=== PATIENT | male | born 1970 | race Caucasian/White ===

== ENCOUNTER 2020-04-29 10:40 | Day surgery (SDC) | payer OTHER ==
[2020-04-24 15:33] LABS: Absolute Lymphocytes (CBC) 2.6 K/uL (0.7-4.9); Basophils % 0.5 % (0-1.3); Lymphocytes % 26.3 % (15.3-44.8); MPV 8.5 fL (7.6-11.3); RBC Red Blood Cell Count 5.31 M/uL (4.33-5.43)
[2020-04-24 16:00] LABS: Potassium 3.6 mmol/L (3.5-5.1)
[2020-04-29] MEDS ORDERED: CEFAZOLIN/SWI 1gm 0 GM/0 ML SYR ONE (11:11)
[2020-04-29] MEDS ORDERED: Ringers Lactate 1,000 ML IV ONE ×4 (11:11→15:49)
--- OUTSIDE RECORDS SUMMARY | 2020-04-29 11:18 | XMS REPORT | Continuity of Care Document ---
:1970 [address] Organization [facility] [place] Information [employer] Care Team Providers Name Role Phone [facility] [place] [employer] Unavailable Un available Problems Problem Status Onset Classification Date Comments Sourc e Date Reported PNA Active [place] [id number] [place] COMMUNITY Active [facility] ACQUIRED 7 [place] PNEUMONIA PNEUMONIA, Active [facility] UNSPECIFIED [place] [employer] Medications Medication Details Route Status Patient Ordering Order Source Instructions Provider Date Afrin Severe Notes: (Same Inactive Congestion as: Afrin) 2017 [place] Docusate Notes: (Same Inactive as: Colace) 2017 [place] (Do Not Crush) Katherine Arcos Notes: (Same Inactive As: Tessalon 2017 [place] Per[place]) "Do Not Crush" Lisinopril Notes: (Same Inactive as: Prinivil, 2017 [place] Zestril) Amlodipine Notes: (Same Inactive as: Norvasc) 2016 [place] pantoprazole Notes: Tablet Inactive should not be 2017 [place] chewed or crushed. (Same as: Protonix) Levofloxacin 750 MG 750 mg = 1 Active 06/12/ M H Oral Tablet tab, PO, Q24H, 2017 [place] and [Levaquin] X 10 day, # 10 tab, 0 Refill(s) tramadol 50 mg = 1 tab, Active hydrochloride 50 MG PO, Q6H, PRN 2017 [place] Oral Tablet Pain, X 10 day, # 40 tab, 0 Refill(s) guaiFENesin 200 mg 200 mg = 1 Active oral tablet tab, PO, QID, 2017 [place] X 10 day, # 40 tab, 0 Refill(s) Albuterol 0.833 Notes: (Same Inactive MG/ML / Ipratropium as: Duoneb) 2016 [place] 0.167 MG/ML Inhalant Solution potassium chloride Notes: (Same Inactive as: Potassium 2016 [place] Chloride) Enoxaparin Notes: (Same Inactive as: Lovenox) 2016 [place] Ceftriaxone Notes: (Same Inactive As: Rocephin). 2016 [place] Use with 100 mL NS and infuse over 30 min MEDICATION WASTE Product Size: 1000 mg Product Wasted: ___ mg Azithromycin Notes: (Same Inactive As: Zithromax 2016 [place] IV) Diphenhydramine 25 mg, 1 tab, Inactive H Route: PO, 2016 [place] Drug form: TAB, QID, Dosing Weight 144.091, kg, PRN as needed for allergy symptoms, Start date: 09/05/16 2:20:00 CDT, Duration: 30 day, Stop date: 10/05/16 2:19:00 CDT Saline Flush 0.9% Notes: (Same Inactive as: BD 2016 [place] Posiflush) Sodium Chloride 1,000 mL, Inactive 0.154 MEQ/ML Rate: 100 2016 [place] Injectable Solution ml/hr, Infuse over: 10 hr, Route: IV, Dosing Weight 144.091 kg, Total Volume: 1,000, Start date: 09/05/16 2:17:00 CDT, Duration: 1 doses or times, Stop date: 09/05/16 12:16:00 CDT dextromethorphan-gu Notes: Inactive aiFENesin 10 mg-100 (dextromethorp 2016 [place] mg/5 mL oral liquid hopper-guaifenesi n 10-100mg/5ml 10 ml oral SOLN ud) (Same as: Robitussin DM) Albuterol 0.83 Notes: SEE RT Inactive MG/ML Inhalant DOCUMENTATION 2016 [place] Solution (Same as: Proventil) Sodium Chloride 1,000 mL, No Longer 0.154 MEQ/ML Rate: 100 Active 2016 [place] Injectable Solution ml/hr, Infuse over: 10 hr, Route: IV, Dosing Weight 144.091 kg, Total Volume: 1,000, Start date: 09/04/16 20:37:00 CDT, Duration: 1 day, Stop date: 09/05/16 20:36:00 CDT Morphine Notes: (Same No Longer as:MORPhine Active 2016 [place] Sulfate) Ondansetron Notes: (Same No Longer as: Zofran) Active 2016 [place] MEDICATION WASTE Product Size: 4 mg Product Wasted: ___ mg Acetaminophen Notes: Do not No Longer exceed 4 Active 2016 [place] gm/day. (Same as: Tylenol) Acetaminophen 325 Notes: (Same No Longer MG / Hydrocodone as: [place] Active 2016 [place] and Bitartrate 5 MG 325/5) Do not Oral Tablet exceed 4gm/day of acetaminophen. Saline Flush 0.9% Notes: (Same No Longer as: BD Active 2016 [place] Posiflush) allopurinol 300 mg 300 mg = 1 Active oral tablet tab, PO, 2016 [place] Daily, 0 Refill(s) Amlodipine 10 mg, PO, Active Daily, 0 2016 [place] Refill(s) Hydrochlorothiazide 50 mg, PO, Active 09/05/ H Daily, 0 2016 [place] Refill(s) Ibuprofen 800 mg, PO, Active Q8H, 0 2016 [place] Refill(s) lisinopril 40 mg 40 mg = 1 tab, Active oral tablet PO, Daily, 0 2016 [place] Refill(s) indomethacin 25 mg 100.4 F, 0 No Longer oral capsule Refill(s) Active 2016 [place] tadalafil 5 mg oral 5 mg = 1 tab, Active tablet PO, Daily, PRN 2016 [place] for erectile dysfunction, 0 Refill(s) Milnacipran 100 mg = 1 Active hydrochloride 100 tab, PO, 2016 [place] and MG Oral Tablet Daily, 0 [Savella] Refill(s) Allergies, Adverse Reactions, Alerts Substance Category Reaction Severity Reaction Status Date Comments S ource type Reported codeine Assertion Drug Active allergy [place] Immunizations No Data Provided for This Section Results Order Name Results Value Reference Date Interpretation Comments Katarina rce Range CHEM PANEL Phosphorus 2.6 2.5 - 4.5 09/05 [place] CHEM PANEL Magnesium Lvl 2.1 1.8 - 2.4 09/05 [place] CHEM PANEL eGFR 118 09/05 Result Comment: The [place] eGFR is calculated using the CKD-EPI formula. In most young, healthy individuals the eGFR will be >90 mL/min/1.73m2 . The eGFR declines with age. An eGFR of 60-89 may be normal in some populations, particularly the elderly, for whom the CKD-EPI formula has not been extensively validated. Use of the eGFR is not recommended in the following populations:< br/>
Ayanna viduals with unstable creatinine concentration s, including patients and those with serious co-morbid conditions.<b r/>
Patie nts with extremes in muscle mass or diet.

The data above are obtained from the National Kidney Disease Education Program (NKDEP) which additionally recommends that when the eGFR is used in patients with extremes of body mass index for purposes of drug dosing, the eGFR should be multiplied by the estimated BMI. CHEM PANEL Sodium Lvl 140 135 - 145 09/05 [place] CHEM PANEL Potassium Lvl 3.2 3.5 - 5.1 09/05 [place] CHEM PANEL Chloride Lvl 101 95 - 109 09/05 [place] CHEM PANEL CO2 29 24 - 32 09/05 [place] CHEM PANEL Calcium Lvl 8.8 8.5 - 10.5 09/05 [place] CHEM PANEL Creatinine 0.63 0.50 - 1.40 09/05 [place] CHEM PANEL BUN 9 7 - 22 09/05 [place] CHEM PANEL Glucose Lvl 132 70 - 99 09/05 [place] CHEM PANEL AGAP 13.2 10.0 - 20.0 09/05 [place] CHEM PANEL Lactic Acid 0.9 0.5 - 2.2 09/05 [place] HEMATOLOGY Segs 75.7 45.0 - 75.0 09/05 [place] HEMATOLOGY Monocytes 6.9 2.0 - 12.0 09/05 [place] HEMATOLOGY Lymphocytes 15.3 20.0 - 40.0 09/05 [place] HEMATOLOGY Lymphocytes # 2.1 1.0 - 5.5 09/05 [place] HEMATOLOGY Basophils 0.2 0.0 - 1.0 09/05 [place] HEMATOLOGY Eosinophils 1.9 0.0 - 4.0 09/05 [place] HEMATOLOGY Monocytes # 0.9 0.0 - 0.8 09/05 [place] HEMATOLOGY Segs-Bands # 10.4 1.5 - 8.1 09/05 [facility] Eosinophils # 0.3 0.0 - 0.5 09/05 [place] HEMATOLOGY MCH 28.0 27.0 - 31.0 09/05 [place] HEMATOLOGY MCV 83.4 80.0 - 94.0 09/05 [facility] Hct 42.3 42.0 - 54.0 09/05 [facility] Hgb 14.2 14.0 - 18.0 09/05 [facility] MCHC 33.6 32.0 - 36.0 09/05 [facility] Platelet 194 133 - 450 09/05 [facility] MPV 8.4 7.4 - 10.4 09/05 [facility] RDW 13.8 11.5 - 14.5 09/05 [facility] WBC X 10x3 13.7 3.7 - 10.4 09/05 [facility] RBC X 10x6 5.08 4.70 - 6.10 09/05 [place] Pathology Reports No Data Provided for This Section Diagnostic Reports Report Value Date Source Chest 2 views DX PA and lateral chest: There is a shallow inspiration. The cardiomediastinal silhouette, pulmonary vasculature and jonathan are within normal limits. There is mild bibasilar subsegmental atelectasis and mild 09/05/2016 [facility] peribronchial infiltrate in the left infrahilar region. The lungs and pleural spaces are otherwise clear. There are no significant osseous abnormalities. IMPRESSION: Mild left lower lobe peribronchial infiltrate. [id number] Consultation Notes No Data Provided for This Section Discharge Summaries No Data Provided for This Section History and Physicals No Data Provided for This Section Vital Signs Vital Sign Value Date Comments Source Respitory Rate 18 09/05/2016 [facility] Temperature Oral (F) 98.2 F 09/05/2016 [facility] Systolic (mm Hg) 116 09/05/2016 [facility] Diastolic (mm Hg) 75 09/05/2016 [place] Heart Rate 91 09/05/2016 [facility] Heart Rate 91 09/05/2016 [facility] Systolic (mm Hg) 120 09/05/2016 [facility] Diastolic (mm Hg) 76 [facility] Oral (F) 98.1 F 09/05/2016 [facility] Respitory Rate 18 09/05/2016 [facility] BMI Calculated 46.91 09/05/2016 [facility] Weight 144.091 09/05/2016 [facility] Height 175.26 cm 09/05/2016 [facility] Heart Rate 93 09/05/2016 [facility] Temperature Oral (F) 98.3 F 09/05/2016 [facility] Systolic (mm Hg) 146 09/05/2016 [facility] Diastolic (mm Hg) 88 09/05/2016 [place] Encounters Location Location Encounter Encounter Reason Attending ADM DC Stat us Source Details Type Number For Provider Date Date Visit [facility] [id number] [place] 09/05 09/05 [place] [facility] Procedures No Data Provided for This Section Assessment and Plan No Data Provided for This Section Plan of Care No Data Provided for This Section Social History Social History Date Source Social History TypeResponse 09/05/2016 [facility] Smoking Status Never smoker; Previous treatment: None; Exposure to Tobacco Smoke None; Cigarette Smoking Last 365 Days No; Reg Smoking Cessation Counseling No Family History No Data Provided for This Section Advance Directives No Data Provided for This Section Functional Status No Data Provided for This Section
[2020-04-29] MEDS ORDERED: EPINEPHRINE/PF 1 MG/ML AMP ONE (11:37)
[2020-04-29] MEDS ORDERED: BUPIVACA 0.25%/EPI 0.0005% MDV 50 ML VIAL ONE (12:07)
[2020-04-29] MEDS ORDERED: MIDAZOLAM HCL 2 MG/2 ML INJ ONE (12:32)
[2020-04-29] MEDS ORDERED: LIDOCAINE 2% MPF 5 ML VIAL ONE ×2 (12:32→12:33)
[2020-04-29] MEDS ORDERED: ROPLVACAINE HCL 40 ML ONE (12:32)
[2020-04-29] MEDS ORDERED: NS 0.9% VIAL 10 ML ONE ×2 (12:32→14:10)
[2020-04-29] MEDS ORDERED: dexAMETHasone 10 MG/ML VIAL ONE ×2 (12:32→12:33)
[2020-04-29] MEDS ORDERED: FENTANYL CITR 100 MCG/2 ML ONE ×2 (12:32→13:57)
[2020-04-29] MEDS ORDERED: KETOROLAC 30 MG/ML INJ ONE ×2 (12:33→15:16)
[2020-04-29] MEDS ORDERED: ROCURONIUM 50 MG/5 ML VIAL IV ONE (12:33)
[2020-04-29] MEDS ORDERED: propofoL 200 MG/20 ML VIAL IV ONE ×2 (12:33→13:45)
[2020-04-29] MEDS ORDERED: ONDANSETRON 4 MG/2 ML VIAL ONE (12:34)
[2020-04-29] MEDS ORDERED: CEFAZOLIN/SWI 1gm 1 GM/10 ML SYR ONE (12:48)
[2020-04-29] MEDS ORDERED: KETAMINE HCL 500 MG/5 ML VIAL ONE (13:56)
[2020-04-29] MEDS ORDERED: Phenylephrine HCl 10 MG/ML 1 ML VIAL ONE (14:09)
--- NOTE | 2020-04-29 15:07 | P.BOP ---
Preoperative diagnosis: right shoulder ac arthritis/rct Postoperative diagnosis: same Primary procedure: r dcr with rcr, arthoscopic debridement Estimated blood loss: 20 ccs Anesthesia: General Complications: None Transferred to: Recovery Room Condition: Good
[2020-04-29] MEDS ORDERED: GLYCOPYRROLATE 0.2 MG/ML SYR ONE (15:13)
[2020-04-29] MEDS ORDERED: NEOSTIGMINE 1 MG/ML -5 ML ONE (15:13)
[2020-04-29 16:20] VITALS: BP 131/74; TEMP 97.6
[2020-04-29 16:46] VITALS: O2SAT 94
--- NOTE | 2020-04-29 19:48 | OP ---
Date of Procedure: 04/29/2020 Surgeon: Bethel Gurrola MD Preoperative Diagnosis: Right shoulder rotator cuff tear with acromioclavicular arthritis and imping ement. Postoperative Diagnoses: 1.Significant synovial inflammation and some biceps fraying. 2.Very large retracted rotator cuff tear. 3.Acromioclavicular arthritis. 4.Abdominally projecting bone from the anterior aspect of the acromion. Procedures: 1.Arthroscopic intra-articular debridement. 2.Mini open subacromial decompression and acromioplasty with distal clavicle resection and repair of large retracted rotator cuff tear. Estimated Blood Loss: 20 cc. Complications: None. Pathology Specimen Sent: None. Indications For Operation: Mr. 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 He was seen in exam in my offi ce where it was difficult for him to even raise or move his shoulder. He therefore underwent an MRI which does demonstrate a large rotator cuff tear as well as other findings delineated in the MRI repo rt. Based on these findings and his age, decision was made to move forward with distal clavicle exci raphael, subacromial decompression, debridement as needed, as well as rotator cuff repair. He says he u nderstands things as presented, knows the significant nature of his injury and a long period of recov zaira, and agrees to proceed. Procedure In Detail: The patient was given a block in the holding area, and after this, he was then transferred to the operating room where general anesthesia was obtained by Anesthesia staff. Followi ng this, his right upper extremity was then prepped and draped in the usual sterile fashion for arthr oscopy. This was followed by palpation of the bony landmarks. It is somewhat difficult because of t he girth of the patient's shoulder; however, the arthroscopic camera was then placed, and I was able to observe the intra-articular portion of the shoulder. The intra-articular portion of the shoulder was quite significantly involved with obvious communication between the shoulder and subacromial spac e. There was a significant amount of rotator cuff tear. The biceps tendon itself appeared to be int act but maybe slightly frayed. The glenohumeral joint itself appeared to be without any osteochondra l lesion. An anterior arthroscopy portal was then made under direct vision using the outside-in tech nique and a 3.5 shaver was then used to debride back slight amount of the biceps near the anchor as w ell as some of the undersurface of the rotator cuff. After this was completed, the posterior incisio n was closed, arm was then re-prepped and gloves and instruments were changed. This was followed by an anterior incision and was taken down carefully through skin and soft tissues. There is quite a bi t of adipose tissue prior to finding the deltoid; however, the acromioclavicular joint is encountered and a small amount of trapezial fascia was taken off the distal end of the clavicle and tagged for l ater repair. Following this, the deltoid was then removed from the distal end of the clavicle as wel l as the anterior acromion. This was somewhat difficult because of a very large dominantly projectin g anterior osteophyte; however, we were able to get a suhas there and obtain a distal acromioplast y as well as a slight amount of subacromial acromioplasty. We released the coracoacromial ligament, which did allow for visualization. The deltoid was tagged for repair. The shoulder was then brought into view. There was found to be a cuff of rotator cuff tissue, which was still attached at the ins ertion; however, there was a very large amount, which is quite far retracted. The footprint was then gently debrided using a rongeur and we were able to remove the bursa and mobilize the rotator cuff. The biceps tendon was observed in its sheath. The 2 JuggerKnot suture anchors were then placed and the supraspinatus was then brought down both anteriorly as well as near the midportion to bone. It w as then oversewn using further suture. The rotator cuff was applied back. There was a slight overla pping of the 2 into the rotator cuff but it appears to be a good closure. Following this, the chandl er was again placed and distal clavicle excision was performed to ensure there was no dominant reduct ion osteophyte of the clavicle. The wound was then copiously irrigated and the deltoid was repaired back to the acromion using bone tunnels. This was also oversewn using Vicryl sutures at both the cla vicle as well as acromion. Wound was again irrigated. The skin was closed using 2-0 Vicryl sutures, followed by severo. The patient was then placed in Aquacel dressing, awakened, and taken to Recove ry in good condition, no complications. /MAYELA Voice ID: [id number] Report ID: [id number]
== END 2020-04-29 16:45 | disposition home health service (06) ==
LOC: OR 10:40
PROVIDERS: ATTEND Orthopaedic Surgery
PROC: 0RNJ4ZZ Release Right Shoulder Joint, Percutaneous Endoscopic Approach (ICD-10-PCS; 2020-04-29)
PROC: 0RBJ4ZZ Excision of Right Shoulder Joint, Percutaneous Endoscopic Approach (ICD-10-PCS; 2020-04-29)
PROC: 0LQ14ZZ Repair Right Shoulder Tendon, Percutaneous Endoscopic Approach (ICD-10-PCS; principal; 2020-04-29 12:00)
DX: M75.101 Unspecified rotator cuff tear or rupture of right shoulder, not specified as traumatic (principal); M19.011 Primary osteoarthritis, right shoulder; M25.811 Other specified joint disorders, right shoulder; Z20.822 Contact with and (suspected) exposure to COVID-19
CPT/HCPCS: 93005; 85025; 80048; 36415; 29827; 29826; 29822; U0002; J2704 ×2; J0171; J2370; J2250; J3010 ×2; J1100 ×2; J2795; J2710; J0690; J7120 ×4; J2405

== ENCOUNTER 2020-07-24 10:31 | Day surgery (SDC) | payer OTHER ==
[2020-07-22 12:30] LABS: Absolute Lymphocytes (CBC) 1.8 K/uL (0.7-4.9); Basophils % 0.3 % (0-1.3); Lymphocytes % 16.2 % (15.3-44.8); MPV 9.1 fL (7.6-11.3); RBC Red Blood Cell Count 5.34 M/uL (4.33-5.43)
[2020-07-22 12:39] LABS: BUN Blood Urea Nitrogen 16 mg/dL (7-18); Bicarbonate 27 mmol/L (21-32); Glucose Level 117 mg/dL (74-106); Potassium 3.8 mmol/L (3.5-5.1); Sodium Level 142 mmol/L (136-145)
[2020-07-24] MEDS ORDERED: Ringers Lactate 1,000 ML IV ONE (11:04)
[2020-07-24] MEDS ORDERED: CEFAZOLIN/SWI 1gm 1 GM/10 ML SYR ONE (11:04)
[2020-07-24] MEDS ORDERED: LIDOCAINE 2% MPF 5 ML VIAL ONE (12:26)
[2020-07-24] MEDS ORDERED: FENTANYL CITR 100 MCG/2 ML ONE (12:26)
[2020-07-24] MEDS ORDERED: MIDAZOLAM HCL 2 MG/2 ML INJ ONE (12:26)
[2020-07-24] MEDS ORDERED: propofoL 200 MG/20 ML VIAL IV ONE (12:26)
[2020-07-24] MEDS ORDERED: KETOROLAC 30 MG/ML INJ ONE (12:26)
[2020-07-24] MEDS ORDERED: dexAMETHasone 10 MG/ML VIAL ONE (12:26)
[2020-07-24] MEDS ORDERED: ONDANSETRON 4 MG/2 ML VIAL ONE ×2 (12:27→14:04)
[2020-07-24] MEDS ORDERED: NS 0.9% VIAL 10 ML ONE (13:30)
[2020-07-24] MEDS ORDERED: MORPHINE 10 MG/ML VIAL ONE (13:30)
--- NOTE | 2020-07-24 13:33 | P.BOP ---
Preoperative diagnosis: left knee pain with mechanical sx, probable loose bodies/meniscal tear(s) Postoperative diagnosis: mmt, lmt, multible loose bodies,djd left knee Primary procedure: mm debridement, lm debridement, chondroplasty,loose body removal Estimated blood loss: 10ccs Anesthesia: General Complications: None Transferred to: Recovery Room Condition: Good
[2020-07-24] MEDS: HYDROMORPHONE HCL 1 MG/ML INJ ONE ×2 (13:48→13:53)
[2020-07-24 14:09] VITALS: O2SAT 95
[2020-07-24] MEDS ORDERED: HYDROCODONE/APAP 5/325 MG TAB PO ONE (14:20)
[2020-07-24] MEDS ORDERED: HYDROCODONE/APAP 10/325 TAB ONE (14:38)
[2020-07-24 15:18] VITALS: BP 131/75; TEMP 97.3
--- NOTE | 2020-07-24 23:56 | OP ---
Date of Procedure: 07/24/2020 Surgeon: Bethel Gurrola MD Preoperative Diagnoses: Left knee pain with mechanical symptoms, probable loose bodies as well as po ssible meniscal tear or tears, as well as significant degenerative changes of the knee. 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 2.Grade 4 chondromalacia of lateral compartment. 3.Grade 3 chondromalacia of the patellofemoral joint. 4.Small tear of the medial meniscus. 5.Complex very degenerated tearing with subluxation of the lateral meniscus. 6.Three rather large loose bodies. Procedure: Left knee arthroscopy with debridement of lateral meniscal tear as well as removal of 3 l arge loose bodies as well as some abrasion chondroplasty of the medial compartment and very slight de bridement of the medial meniscus. Estimated Blood Loss: Less than 10 cc. Complications: No complications. The loose bodies will be sent to Pathology. Indications For Operation: Mr. Raymond is a 49-year-old male who unfortunately has been troubled with his left knee for quite some time. He describes locking of the knee as well as pain. He says this h appens with lateral movements as well as randomly throughout the day. He had x-rays and MRI, which d emonstrated probable meniscal tear or tears as well as loose bodies, and the risks, benefits, and alt ernatives of different methods of treating has been discussed with the patient. He opts for arthrosc opic treatment of loose bodies. He knows that he may develop more loose bodies and will not be addre ssing his arthritic component, but at this time is mostly concerned about mechanical symptoms, and ho pefully this will help with that. He says he understands things as presented and wished to proceed. Description Of Procedure: The patient was taken to the operating room and placed in the supine posit ion. General anesthesia was obtained by staff. Following this, a well-padded tourniquet was placed in superior left thigh. Left lower extremity was then prepped and draped in the usual fashion for pr ocedure. Following this, a standard superomedial arthroscopy portal was then placed for placement of the drainage needle. Approximately 10 cc of rather normal-appearing synovial fluid was removed. Af ter this, a standard inferior lateral arthroscopy portal was then established and the knee was then s equentially examined including suprapatellar pouch, medial and lateral compartments, medial and later al gutters, as well as the notch, patellofemoral joint. Pertinent findings included grade 3-4 chondr omalacia of the medial compartment, grade 3-4 chondromalacia of the lateral compartment, grade 3 mauro dromalacia of patellofemoral joint. Also seen is a small tear at the medial meniscus as well as comp ashkan tears and mobile segments of the lateral meniscus. A standard inferior and medial arthroscopy po rtal was then placed using a needle for localization. This allowed for probing of both the medial an d lateral menisci, both of which were debrided back to firm, stable, well-countered base. There was found to be a fairly large area of unstable chondral flap on the medial femoral condyle. This was ge ntly debrided back to firm, stable, well-contoured base. No chondral tissue was removed other than t hat which was actually necessary to avoid unstable flap. Lateral meniscus was ensured to be hook sta ble as well. The knee was again examined and fat pad was debrided anteriorly, which revealed a pocke t of loose bodies. There were 3 loose bodies, which were then removed. They were fairly large. Aft er this was done, the knee was again examined in all the above areas with average being taken to ensu re that there were no additional loose bodies including exploration of the notch, fat pad, as well as medial and lateral gutters and suprapatellar region. No further loose bodies were seen as assumed t hat they were present, there were well fixed. The inferior arthroscopy portals were then stapled yonathan t. Superior medial arthroscopy portal was used for placement of Marcaine with epinephrine, which was then stapled. The patient was placed in a well-padded sterile dressing, awakened and taken to recovery room in good condition. There were no c omplications. SE/MODL Voice ID: [id number] Report ID: [id number]
== END 2020-07-24 15:15 | disposition home or self-care (01) ==
LOC: OR 10:31
PROVIDERS: ATTEND Orthopaedic Surgery
PROC: 0SBD4ZZ Excision of Left Knee Joint, Percutaneous Endoscopic Approach (ICD-10-PCS; principal; 2020-07-24 11:30)
DX: S83.242A Other tear of medial meniscus, current injury, left knee, initial encounter (principal); M22.42 Chondromalacia patellae, left knee; S83.272A Complex tear of lateral meniscus, current injury, left knee, initial encounter; M23.42 Loose body in knee, left knee; Z20.822 Contact with and (suspected) exposure to COVID-19
CPT/HCPCS: 85025; 80048; 36415; 88300; 29877; U0003; J2704; J2250; J3010; J1100; J1170; J0690; J7120; J2405 ×2